=== PATIENT | female | born 1990 | race Caucasian/White ===

== ENCOUNTER 2024-02-15 21:43 | Emergency (ER) | payer MEDICAID ==
[~2024-02-15] VITALS: Ht 162.6 cm; Wt 68.0 kg
[2024-02-15 22:08] VITALS: O2SAT 100
[2024-02-16 00:31] LABS: BASOPHILS % 0.4 % (0.0-2.0); EOSINOPHILS % 1.5 % (0.0-5.0); HEMATOCRIT. 37.2 % (36.0-48.0); HEMOGLOBIN. 12.5 g/dL (12.0-16.0); LYMPHOCYTES % 43.2 % (20.0-50.0); MEAN CORPUSCULAR HEMOGLOBIN 30.8 pg (28.0-32.0); MEAN CORPUSCULAR HGB CONC 33.7 g/dL (31.0-37.0); MEAN CORPUSCULAR VOLUME 91.5 fL (81.0-99.0); MEAN PLATELET VOLUME 6.7 fl (7.4-10.4); MONOCYTES % 8.4 % (2.0-8.0); NEUTROPHILS % 46.5 % (40.0-76.0); PLATELET 256 x1000/uL (130-400); RED BLOOD CELL COUNT 4.07 mill/uL (4.2-5.4); RED CELL DISTRIBUTION WIDTH 13.7 % (11.6-14.6)
[2024-02-16 00:39] LABS: CHLORIDE 107 mEq/L (98-107); POTASSIUM 4.5 mEq/L (3.5-5.1); SODIUM 140 mEq/L (136-145)
[2024-02-16 00:40] LABS: CALCIUM 9.6 mg/dL (8.7-10.4); CARBON DIOXIDE 30 mEq/L (21-32)
[2024-02-16 00:45] LABS: CREATININE 0.7 mg/dL (0.6-1.0); GLUCOSE 96 mg/dL (70-105); UREA NITROGEN BLOOD 15 mg/dL (9-23)
[2024-02-16 00:53] LABS: HCG SCREEN NEGATIVE
[2024-02-16] MEDS ORDERED: IBUP-2029 PO (01:03)
[2024-02-16] MEDS ORDERED: DOXY100T28 MT (01:03)
[2024-02-16] MEDS: IBUPROFEN 600MG TABLET PO STA (01:22)
[2024-02-16 01:33] VITALS: BP 127/90; PULSE 63; RESP 20; TEMP 37.05852; O2SAT 99
== END 2024-02-16 01:35 | disposition home or self-care (01) ==
LOC: ER 21:43
DX: N61.0 Mastitis without abscess (principal)
CPT/HCPCS: 36415; 80048; 81025; 84703; 85025; 99283